=== PATIENT | female | born 1995 | race Caucasian/White ===

== ENCOUNTER 2022-07-14 22:08 | Emergency (ER) | payer SELFPAY ==
[~2022-07-14] VITALS: Ht 167.6 cm; Wt 90.7 kg
[2022-07-14 22:15] VITALS: BP 120/60
--- NOTE | 2022-07-14 22:18 | NUR ---
TO LOBBY, A/W BED AMBULATORY
--- NOTE | 2022-07-14 22:35 | NUR ---
WALKED URINE TO LAB.
[2022-07-14 22:37] LABS: APPEARANCE,URINE SL CLOUDY (CLEAR); BILIRUBIN,URINE 1+ (NEGATIVE); BLOOD, URINE 3+ (NEGATIVE); COLOR,URINE ORANGE (YELLOW); LEUKOCYTE ESTERASE ,URINE NEGATIVE (NEGATIVE); NITRITE, URINE POSITIVE (NEGATIVE); UGLUCOSE NEGATIVE (NEGATIVE)
[2022-07-14 22:44] LABS: RBC,URINE >20 (MANY) /HPF (0-5); WBC,URINE 0-5 /HPF (0-5)
--- NOTE | 2022-07-15 01:14 | NUR ---
PT CALLED TO BE BEDDED, NO ANSWER.
--- NOTE | 2022-07-15 01:19 | NUR ---
CALLED PT'S NUMBER ON FILE D/T URINE RESULTS. NUMBER IS NOT IN SERVICE.
== END 2022-07-15 01:14 | disposition left against medical advice (07) ==
LOC: MED 22:08
DX: R10.30 Lower abdominal pain, unspecified (principal); Z53.21 Procedure and treatment not carried out due to patient leaving prior to being seen by health care provider
CPT/HCPCS: 81001; 87086; 99281